=== PATIENT | male | born 1930 | race Caucasian/White ===

== ENCOUNTER 2018-10-20 18:38 | Outpatient (CLI) | payer MEDICARE ==
[2018-10-20 18:51] LABS: INR-International Normal Ratio 2.5; Prothrombin Time 27.1 SEC (12.0-14.7)
== END 2018-10-20 18:39 | disposition home or self-care (01) ==
LOC: MADLAB 18:38
PROVIDERS: ATTEND Family Medicine
DX: I48.2 Chronic atrial fibrillation (principal); I82.5Z2 Chronic embolism and thrombosis of unspecified deep veins of left distal lower extremity
CPT/HCPCS: 85610